=== PATIENT | male | born 1945 | race Caucasian/White ===

== ENCOUNTER 2020-10-20 17:44 | Emergency (ER) | payer MEDICARE, OTHER ==
[2020-10-20] MEDS ORDERED: Lidocaine 1% PF 5 ML VIAL ONE (18:13)
[2020-10-20] MEDS ORDERED: Acetaminophen 500 MG TAB ONE (18:13)
[2020-10-20] MEDS ORDERED: Bacitracin 1 PK ONE (18:13)
[2020-10-20] MEDS ORDERED: Lidocaine Viscous Sol 2% 15 ml UD Cup ONE (18:29)
[2020-10-20] MEDS ORDERED: Mag-Al Plus 1200 MG/1200 MG/120 MG/30 ML UDCUP ONE (18:29)
[2020-10-20] MEDS ORDERED: Cephalexin 250 MG CAP ONE (19:07)
== END 2020-10-20 19:10 | disposition home or self-care (01) ==
LOC: BURERS 17:44
DX: S61.210A Laceration without foreign body of right index finger without damage to nail, initial encounter (principal); I10 Essential (primary) hypertension; E78.00 Pure hypercholesterolemia, unspecified; I25.2 Old myocardial infarction; W23.0XXA Caught, crushed, jammed, or pinched between moving objects, initial encounter
CPT/HCPCS: 12001